=== PATIENT | female | born 1995 | race African-American/Black ===

== ENCOUNTER 2017-05-17 14:47 | Emergency (ER) | payer OTHER ==
[~2017-05-17] VITALS: Ht 157.5 cm; Wt 90.0 kg
[~2017-05-17 14:47] MED LIST: SILV1CRE59 TOP
[2017-05-17 14:49] VITALS: BP 167/98; PULSE 94; RESP 17; TEMP 98.4; O2SAT 96
--- NOTE | 2017-05-17 15:54 | PD ---
HPI Chief Complaint: Cold / Flu Symptoms Time Seen by Provider: 15:51 Travel History International Travel<30 days: No Contact w/Intl Traveler<30days: No Traveled to known affect area: No History of Present Illness HPI 22-year-old female presents to emergency Department with complaint of cough, nasal congestion, sore throat, body aches since last night. Does not know if she's had a fever. Denies chest pain, shortness of breath, abdominal pain, vomiting. Denies wheezing. Denies ear pain. Took DayQuil this morning for symptom management. Symptoms are mild in severity. No known allergies. Has no other medical complaints. No other modifying factors or associated signs and symptoms. PFSH Past Medical History Hx Anticoagulant Therapy: No Cardiovascular Problems: No Chemotherapy: No Cerebrovascular Accident: No Diabetes: No Diminished Hearing: No Respiratory: No Past Surgical History Hysterectomy: No Social History Alcohol Use: Yes (occas) Tobacco Use: Yes Substance Use: No Allergies-Medications (Allergen,Severity, Reaction): Coded Allergies: No Known Allergies (Unverified , 05/17/17) Reported Meds & Prescriptions Reported Meds & Active Scripts Active Silvadene (Silver Sulfadiazine) 50 Gm Cr 1 % TOP DAILY Review of Systems Except as stated in HPI: all other systems reviewed are Neg Physical Exam Narrative GENERAL: Well-nourished, well-developed black female patient, in no acute distress; afebrile, nontoxic-appearing SKIN: Warm and dry. No rash. HEAD: Atraumatic. Normocephalic. EYES: Pupils equal and round. No scleral icterus. No injection or drainage. ENT: Mucosa pink and moist. No erythema or exudates. No uvular edema. No uvular , palatal, or tonsillar deviation. Airway patent. EARS: Bilateral pinnae and external canals appear within normal limits. Bilateral tympanic membranes without erythema, dullness or perforation. NECK: Trachea midline. No lymphadenopathy. CARDIOVASCULAR: Regular rate and rhythm. No murmur appreciated. RESPIRATORY: No accessory muscle use. Clear to auscultation. Breath sounds equal bilaterally. No retractions or tachypnea. GASTROINTESTINAL: Obese. MUSCULOSKELETAL: No obvious deformities. No clubbing. No cyanosis. No edema. NEUROLOGICAL: Awake and alert. Oriented 3. No obvious cranial nerve deficits. Motor grossly within normal limits. Normal speech. Moves all extremities. 5/5 strength to all extremities. PSYCHIATRIC: Appropriate mood and affect; insight and judgment normal. Data Data Last Documented VS Vital Signs Date Time Temp Pulse Resp B/P (MAP) Pulse Ox O2 Delivery O2 Flow Rate FiO2 05/17/17 17:39 16 05/17/17 15:25 Room Air 05/17/17 14:49 98.4 94 167/98 (121) 96 Orders Orders Group A Rapid Strep Screen (05/17/17 15:51) Influenzae A/B Antigen (05/17/17 15:51) Ibuprofen (Motrin) (05/17/17 16:00) Strep Culture (Group A) (05/17/17 16:45) MDM Medical Decision Making Medical Screen Exam Complete: Yes Emergency Medical Condition: Yes Medical Record Reviewed: Yes Differential Diagnosis Upper respiratory infection, viral illness, strep pharyngitis, bronchitis, influenza Narrative Course 22-year-old female with cold/flu symptoms since last night. Patient is afebrile and nontoxic-appearing. Unknown fever at home. Denies vomiting. Ibuprofen administered in the ear. Influenza rapid strep ordered. 1756: Rapid strep negative. Influenza negative. Suspecting viral illness. Discussed viral illness and symptoms management. Instructed patient to follow up with primary care provider. Patient verbalizes understanding and agreement with treatment plan. Patient is medically cleared and stable for discharge. Discussed reasons to return to the emergency department. Patient agrees with treatment plan. The patients vital signs are stable and the patient is stable for outpatient follow-up and treatment. Patient discharged home, stable and in no acute distress. Diagnosis Primary Impression: Viral illness Med/Other Pt SpecificInfo: No Meds Exist/No RX given Disposition: 01 DISCHARGE HOME Condition: Stable Sasha Meadows May 17, 2017 15:54
[2017-05-17] MEDS ORDERED: IBUPROFEN 800 MG TAB PO ONE (16:00)
[2017-05-17 17:39] VITALS: RESP 16
== END 2017-05-17 18:12 | disposition home or self-care (01) ==
LOC: EDTENT 14:47
DX: B34.9 Viral infection, unspecified (principal)
CPT/HCPCS: 87081; 87804; 87880; 99283